=== PATIENT | female | born 1955 | race Caucasian/White ===

== ENCOUNTER 2020-01-17 14:55 | Emergency (ER) | payer OTHER ==
[~2020-01-17] VITALS: Ht 154.9 cm; Wt 71.8 kg
[2020-01-17] MEDS ORDERED: LIDOCAINE WITH 8.4% SOD BICARB 3 ML DISP.SYRIN. INJ ONE (16:00)
--- NOTE | 2020-01-17 16:08 | RAD ---
PQRS Compliance Statement: One or more of the following individualized dose reduction techniques were utilized for this examination: 1. Automated exposure control 2. Adjustment of the mA and/or kV according to patient size 3. Use of iterative reconstruction technique CT HEAD WITHOUT CONTRAST History: Reason: fall head pain / Spl. Instructions: / History: Comparison: None. Procedure: Axial images are obtained of the head from the skull base through the vertex without IV contrast. Findings: The ventricles and sulci are normal for the patient's age. There is mild periventricular white matter hypoattenuation. This is a nonspecific finding but is commonly due to chronic small vessel ischemic disease in a patient of this age. No mass-effect, midline shift, hemorrhage, extra-axial fluid collection, or obvious acute infarction is identified. Basilar cisterns are patent. Bone windows demonstrate no acute calvarial abnormality. The visualized paranasal sinuses are clear. Mastoid air cells are well aerated. IMPRESSION: 1. No acute intracranial hemorrhage. 2. Mild periventricular white matter hypodensity may be due to chronic small vessel ischemic disease. Electronically signed by: Clement Bledsoe MD (01/17/2020 4:05 PM) [facility]
--- NOTE | 2020-01-17 16:53 | PHYS DOC ---
Past Medical History Past Medical History: Diabetes-Type II, High Cholesterol, Hypertension Past Surgical History: Smoking Status: Never Smoker Alcohol Use: None General Adult EDM: Chief Complaint: MECHANICAL FALL HPI: HPI: Patient is a 64 year old female with history of diabetes type 2, hypertension, high cholesterol, who presents the ED today to be evaluated after falling. Patient states she tripped on her shoelaces and fell today face forward. Patient denies any loss of consciousness. Denies any head or neck pain. She is complaining of a laceration on the forehead. Denies any mid or low back pain. Denies being on any blood thinners. Review of Systems: Review of Systems: Constitutional: Denies fever or chills. [] Eyes: Denies change in visual acuity. [] HENT: Denies nasal congestion or sore throat. [] Respiratory: Denies cough or shortness of breath. [] Cardiovascular: Denies chest pain or edema. [] GI: Denies abdominal pain, nausea, vomiting, bloody stools or diarrhea. [] : Denies dysuria. [] Musculoskeletal: Denies back pain or joint pain. [] Integument: Reports forehead laceration Neurologic: Reports falling and hitting her head on the ground, denies focal weakness or sensory changes. [] Psychiatric: Denies depression or anxiety. [] Heart Score: Risk Factors: Risk Factors: DM, Current or recent (<one month) smoker, HTN, HLP, family history of CAD, obesity. Risk Scores: Score 0 - 3: 2.5% MACE over next 6 weeks - Discharge Home Score 4 - 6: 20.3% MACE over next 6 weeks - Admit for Clinical Observation Score 7 - 10: 72.7% MACE over next 6 weeks - Early Invasive Strategies Current Medications: Current Medications Medications (Trade) Dose Ordered Sig/[facility] Start Time Stop Time Status Last Admin Dose Admin Lidocaine HCl (Buffered Lidocaine 1%) 3 ml 1X ONCE 01/17/20 16:00 01/17/20 16:01 DC 01/17/20 16:19 3 ML Allergies: Allergies: Allergies Coded Allergies Type Severity Reaction Last Updated Verified No Known Drug Allergies 01/17/20 No Physical Exam: PE: Constitutional: Well developed, well nourished, no acute distress, non-toxic appearance. [] HENT: Normocephalic, atraumatic, bilateral external ears normal, oropharynx moist, no oral exudates, nose normal. [] Eyes: PERRLA, EOMI, conjunctiva normal, no discharge. [] Neck: Normal range of motion, no tenderness, supple, no stridor. [] Cardiovascular:Heart rate regular rhythm, no murmur [] Lungs & Thorax: Bilateral breath sounds clear to auscultation [] Abdomen: Bowel sounds normal, soft, no tenderness, no masses, no pulsatile masses. [] Skin:Mid forehead with a laceration approximately 3 cm long. Back: No tenderness, no CVA tenderness. [] Extremities: No tenderness, no cyanosis, no clubbing, ROM intact, no edema. [] Neurologic: Alert and oriented X 3, normal motor function, normal sensory function, no focal deficits noted. Cranial nerves II through XII intact Psychologic: Affect normal, judgement normal, mood normal. [] Current Patient Data: Vital Signs: Vital Signs Date Time Temp Pulse Resp B/P (MAP) Pulse Ox O2 Delivery O2 Flow Rate FiO2 01/17/20 15:17 97.5 82 20 145/84 (104) 97 Room Air 97.5 EKG: EKG: [] Radiology/Procedures: Radiology/Procedures: []PROCEDURE: CT HEAD WO CONTRAST PQRS Compliance Statement: One or more of the following individualized dose reduction techniques were utilized for this examination: 1. Automated exposure control 2. Adjustment of the mA and/or kV according to patient size 3. Use of iterative reconstruction technique CT HEAD WITHOUT CONTRAST History: Reason: fall head pain / Spl. Instructions: / History: Comparison: None. Procedure: Axial images are obtained of the head from the skull base through the vertex without IV contrast. Findings: The ventricles and sulci are normal for the patient's age. There is mild periventricular white matter hypoattenuation. This is a nonspecific finding but is commonly due to chronic small vessel ischemic disease in a patient of this age. No mass-effect, midline shift, hemorrhage, extra-axial fluid collection, or obvious acute infarction is identified. Basilar cisterns are patent. Bone windows demonstrate no acute calvarial abnormality. The visualized paranasal sinuses are clear. Mastoid air cells are well aerated. IMPRESSION: 1. No acute intracranial hemorrhage. 2. Mild periventricular white matter hypodensity may be due to chronic small vessel ischemic disease. Electronically signed by: Clement Maddox MD (01/17/2020 4:05 PM) [facility] DICTATED and SIGNED BY: CLEMENT MADDOX MD DATE: 01/17/20 [id number] Laceration/Wound Repair Wound Location: Forehead Wound's Depth, Shape: Vertical size-approx. 3 cm Wound Explored: clean Irrigated w/ Saline (ccs): 20 Betadine Prep?: Y Anesthesia: 1% of buffered lidocaine Volume Anesthetic (ccs): Approximately 2 cc Wound Repaired With: Dissolvable gut Suture Size/Type: 6.0/interrupted sutures Number of Sutures: 3 Progress wound was covered with Band-Aid Course & Med Decision Making: Course & Med Decision Making Pertinent Labs and Imaging studies reviewed. (See chart for details) This is a 64-year-old female patient presenting to the ED today with forehead laceration status post falling hitting her head on the ground. CT of the head is negative for any acute findings. She does not have any neck pain. She is not on any blood thinners. Forehead laceration was closed by me as noted in procedures. Tetanus is up-to-date. Wound care instructions and return precautions provided Dragon Disclaimer: Dragon Disclaimer: This electronic medical record was generated, in whole or in part, using a voice recognition dictation system. Departure Departure Impression: Primary Impression: Fall from standing Qualified Codes: W19.XXXA - Unspecified fall, initial encounter Additional Impressions: Forehead laceration Qualified Codes: S01.81XA - Laceration without foreign body of other part of head, initial encounter Closed head injury Qualified Codes: S09.90XA - Unspecified injury of head, initial encounter Disposition: 01 DC HOME SELF CARE/HOMELESS Condition: STABLE Referrals: UNKNOWN PCP NAME (PCP) Follow-up with your doctor in 1 to 2 weeks Patient Instructions: Facial Laceration, Head Injury, Adult, [id number] Additional Instructions: You have a forehead laceration was closed with dissolvable stitches. You can shower and wash your head and face once or twice a day. Do not scrub the laceration site. Apply Neosporin to the laceration site twice a day. Monitor the area for any signs of infection including but not limited to increased redness, warmth, yellow drainage from the area and return to the ED if they occur. Return to the ED at any point you have concerning symptoms. MARIA ANTONIA CRANDALL APRN Jan 17, 2020 16:53
[2020-01-17 16:58] VITALS: BP 142/82
== END 2020-01-17 16:58 | disposition home or self-care (01) ==
LOC: ER 14:55
DX: S01.81XA Laceration without foreign body of other part of head, initial encounter (principal); E11.9 Type 2 diabetes mellitus without complications; E78.00 Pure hypercholesterolemia, unspecified; I10 Essential (primary) hypertension; W01.0XXA Fall on same level from slipping, tripping and stumbling without subsequent striking against object, initial encounter; Y93.89 Activity, other specified; Y92.89 Other specified places as the place of occurrence of the external cause; Y99.8 Other external cause status
CPT/HCPCS: 12013; 70450; 99284; J3490